=== PATIENT | male | born 1960 | race Two or more races ===

== ENCOUNTER 2020-03-29 11:20 | Emergency (ER) | payer OTHER ==
[~2020-03-29] VITALS: Ht 172.7 cm; Wt 71.7 kg
[2020-03-29 11:31] VITALS: BP 159/76
== END 2020-03-29 14:11 | disposition home or self-care (01) ==
LOC: ER 11:20
DX: S39.012A Strain of muscle, fascia and tendon of lower back, initial encounter (principal); M48.061 Spinal stenosis, lumbar region without neurogenic claudication; W10.9XXA Fall (on) (from) unspecified stairs and steps, initial encounter; Y93.89 Activity, other specified; Y92.89 Other specified places as the place of occurrence of the external cause; Y99.8 Other external cause status
CPT/HCPCS: 72131; 72192